=== PATIENT | male | born 1950 | race Caucasian/White ===

== ENCOUNTER 2018-10-06 10:04 | Outpatient (CLI) | payer MEDICARE ==
--- NOTE | 2018-10-06 11:40 | RAD ---
KUB: 10/06/2018 PROVIDED CLINICAL HISTORY: Abdominal pain. FINDINGS: The abdominal bowel gas pattern is nonspecific. No radiographically apparent urinary tract calculi. The supine nature of the examination is not sensitive for detection of pneumoperitoneum. Degenerati ve changes are seen involving the thoracic spine. IMPRESSION: No radiographically apparent urinary tract calculi. POS: SANTO
== END 2018-10-06 10:05 | disposition home or self-care (01) ==
LOC: RAD-FRANK 10:04
PROVIDERS: ATTEND Nurse Practitioner Family
DX: K57.92 Diverticulitis of intestine, part unspecified, without perforation or abscess without bleeding (principal)
CPT/HCPCS: 74018

== ENCOUNTER 2019-03-14 09:37 | Outpatient (CLI) | payer MEDICARE ==
--- NOTE | 2019-03-14 10:27 | RAD ---
LUMBAR SPINE THREE VIEWS: HISTORY: Low back pain. FINDINGS: There are degenerative changes in the lumbar spine. No fracture, subluxation, or bony destruction is seen. IMPRESSION: Lumbar spondylosis. POS: SERA
== END 2019-03-14 09:38 | disposition home or self-care (01) ==
LOC: RAD-FRANK 09:37
PROVIDERS: ATTEND Nurse Practitioner Family
DX: M47.26 Other spondylosis with radiculopathy, lumbar region (principal)
CPT/HCPCS: 72100

== ENCOUNTER 2020-09-30 10:53 | Outpatient (CLI) | payer MEDICARE, BC ==
--- NOTE | 2020-09-30 12:38 | RAD ---
PA AND LATERAL VIEWS CHEST: HISTORY: Pleuritic chest pain. COMPARISON: 04/20/2016. FINDINGS: The heart size is normal. The lungs are expanded without lobar consolidation, pneumothoraces, or ple ural effusions. There are degenerative changes in the spine. IMPRESSION: No acute process. POS: SERA
== END 2020-09-30 10:54 | disposition home or self-care (01) ==
LOC: RAD-FRANK 10:53
PROVIDERS: ATTEND Nurse Practitioner Family
DX: R07.81 Pleurodynia (principal)
CPT/HCPCS: 71046

== ENCOUNTER 2020-12-30 13:39 | Outpatient (CLI) | payer MEDICARE, OTHER | END 2020-12-30 13:40 | disposition home or self-care (01) | LOC: BICMRI 13:39 | PROVIDERS: ATTEND Neurological Surgery | DX: M48.062 Spinal stenosis, lumbar region with neurogenic claudication (principal); M54.6 Pain in thoracic spine | CPT/HCPCS: 72146; 72148 ==

== ENCOUNTER 2021-01-09 08:53 | Outpatient (CLI) | payer MEDICARE, OTHER ==
[2021-01-09 11:15] LABS: Hemoglobin 16.9 g/dL (13.5-17.5); Mean Corpuscular HGB CONC 32.9 g/dL (32.0-36.0); Mean Corpuscular Hemoglobin 29.9 pg (27.0-33.0); Mean Corpuscular Volume 90.8 fl (81.2-95.1); Mean Platelet Volume 10.9 fl (7.4-10.4); Platelet Count 225 10x3/uL (150-450); RBC Distribution Width 13.7 % (11.5-14.5); Red Blood Cell (RBC) Count 5.66 10x6/uL (4.32-5.72); White Blood Cell (WBC) Count 9.1 10x3/uL (3.5-10.5)
[2021-01-09 11:36] LABS: Anion Gap 14 mmol/L (10-20); BUN (Urea Nitrogen) 14 mg/dL (8.4-25.7); Calc. Creatinine Clearance 0 mL/min (70-130); Calcium 9.5 mg/dL (7.8-10.44); Carbon Dioxide 27 mmol/L (23-31); Chloride 103 mmol/L (98-107); Glucose 101 mg/dL (80-115); Potassium 4.2 mmol/L (3.5-5.1); Sodium 140 mmol/L (136-145)
[2021-01-09 20:55] LABS: SARS-CoV-2 PCR by NAA Not Detected (NotDetected)
== END 2021-01-09 08:54 | disposition home or self-care (01) ==
LOC: LABBT 08:53
PROVIDERS: ATTEND Neurological Surgery
DX: Z01.818 Encounter for other preprocedural examination (principal); Z20.822 Contact with and (suspected) exposure to COVID-19; M54.16 Radiculopathy, lumbar region
CPT/HCPCS: 80048; 85027; 93005; U0003; U0005; 87635; 93010

== ENCOUNTER 2021-01-14 07:17 | Observation (INO) | payer MEDICARE, OTHER ==
[2021-01-14] MEDS ORDERED: Phenylephrine 10 MG/ML VIAL ONE (09:13)
[2021-01-14] MEDS ORDERED: Fentanyl 100 MCG/2 ML VIAL ONE ×4 (09:20→15:09)
[2021-01-14] MEDS ORDERED: PHENYLEPHRINE-NS 100 MCG/ML 10 ML SYRINGE ONE (09:35)
[2021-01-14] MEDS ORDERED: Ondansetron PF 4 MG/2 ML Vial ONE (09:35)
[2021-01-14] MEDS ORDERED: PROPOFOL 200 MG/20 ML VIAL ONE (09:35)
[2021-01-14] MEDS ORDERED: Dexamethasone 20 MG/5 ML VIAL ONE (09:35)
[2021-01-14] MEDS ORDERED: Rocuronium Bromide 10 MG/ML (10ML VIAL) ONE (09:35)
[2021-01-14] MEDS ORDERED: Ketorolac Tromethamine 30 MG/ML VIAL ONE (09:35)
[2021-01-14] MEDS ORDERED: Lidocaine 1% PF 5 ML VIAL ONE (09:35)
[2021-01-14] MEDS ORDERED: ePHEDrine Sulfate 50 MG/10 ML VIAL ONE (09:35)
[2021-01-14] MEDS ORDERED: HYDROmorphone 2 MG/ML VIAL SLOW IVP PRN (10:07)
[2021-01-14] MEDS ORDERED: Meperidine HCl/PF 25 MG/ML VIAL SLOW IVP PRN (10:07)
[2021-01-14] MEDS ORDERED: Ondansetron HCl/PF 4 MG/2 ML Vial IVP PRN (10:07)
[2021-01-14] MEDS ORDERED: Promethazine HCl 25 MG/ML VIAL SLOW IVP PRN (10:07)
[2021-01-14] MEDS ORDERED: HYDROmorphone 2 MG/ML VIAL ONE (10:09)
[2021-01-14] MEDS ORDERED: SUGAMMADEX SODIUM 200 MG/2 ML VIAL ONE (10:51)
[2021-01-14] MEDS ORDERED: Promethazine HCl 25 MG/ML VIAL ONE (12:44)
[2021-01-14] MEDS ORDERED: Gabapentin 300 MG CAP ONE (15:16)
[2021-01-14] MEDS ORDERED: tiZANidine HCl 4 MG TAB ONE (17:11)
[2021-01-14 18:24] VITALS: BMI 36.6
[2021-01-14] MEDS: Gabapentin 300 MG CAP PO SCH ×2 (19:33→21:46)
[2021-01-14] MEDS ORDERED: Promethazine 25 MG TAB PO PRN (20:00)
[2021-01-14] MEDS ORDERED: diphenhydrAMINE 50 MG/ML VIAL IVP PRN (20:00)
[2021-01-14] MEDS ORDERED: Promethazine HCl 25 MG/ML VIAL IM PRN (20:00)
[2021-01-14] MEDS ORDERED: Promethazine HCl 12.5 MG SUPP PR PRN (20:00)
[2021-01-14] MEDS ORDERED: Morphine 2 MG/ML VIAL SLOW IVP PRN (20:00)
[2021-01-14] MEDS ORDERED: Bisacodyl 10 MG SUPP PR PRN (20:00)
[2021-01-14] MEDS ORDERED: traMADol HCl 50 MG TAB PO PRN ×2 (20:00)
[2021-01-14] MEDS ORDERED: Morphine 4 MG/ML VIAL SLOW IVP PRN ×2 (20:00→20:15)
[2021-01-14] MEDS ORDERED: Acetaminophen/Codeine 30-300mg Tablet PO PRN (20:00)
[2021-01-14] MEDS ORDERED: Mag-Al 1200 mg/1200 mg/30 ML UDCUP PO PRN (20:00)
[2021-01-14] MEDS ORDERED: Milk Of Magnesia 30 ML UDCUP PO PRN (20:00)
[2021-01-14] MEDS ORDERED: diphenhydrAMINE 25 MG CAP PO PRN (20:00)
[2021-01-14] MEDS ORDERED: Ondansetron PF 4 MG/2 ML Vial IM PRN (20:11)
[2021-01-14] MEDS: Sodium Chloride 0.9% 1,000 ML IV SCH (20:28)
[2021-01-14] MEDS: Acetaminophen/Codeine 30-300mg Tablet PO PRN ×2 (20:36→23:39)
[2021-01-14] MEDS ORDERED: Dexamethasone 10 MG in Sodium Chloride 0.9% 50 ML IVPB SCH (22:00)
[2021-01-14] MEDS: CEFAZOLIN 2 GM in Premix Bag 1 BAG IVPB SCH (23:00)
[2021-01-15] MEDS: tiZANidine HCl 4 MG TAB PO PRN ×2 (03:41→21:11)
[2021-01-15] MEDS: Acetaminophen/Codeine 30-300mg Tablet PO PRN (04:25)
[2021-01-15] MEDS: CEFAZOLIN 2 GM in Premix Bag 1 BAG IVPB SCH ×3 (06:21→21:12)
[2021-01-15] MEDS: Tamsulosin HCl 0.4 MG CAP PO SCH (08:22)
[2021-01-15] MEDS: Gabapentin 300 MG CAP PO SCH ×3 (08:22→21:11)
[2021-01-15] MEDS: Lisinopril/Hydrochlorothiazide 20 mg/12.5 mg Tablet PO SCH (08:22)
[2021-01-15] MEDS: Ezetimibe 10 MG TAB PO SCH (08:23)
[2021-01-15] MEDS: Sodium Chloride 0.9% 1,000 ML IV SCH ×2 (08:27→21:13)
[2021-01-15] MEDS: Dexamethasone 4 mg/ml Vial SLOW IVP SCH ×3 (10:42→21:11)
[2021-01-16] MEDS: Dexamethasone 4 mg/ml Vial SLOW IVP SCH ×4 (02:42→15:28)
[2021-01-16] MEDS: CEFAZOLIN 2 GM in Premix Bag 1 BAG IVPB SCH ×2 (05:53→15:28)
[2021-01-16] MEDS: Ezetimibe 10 MG TAB PO SCH (08:23)
[2021-01-16] MEDS: Gabapentin 300 MG CAP PO SCH ×2 (08:23→15:32)
[2021-01-16] MEDS: Acetaminophen/Codeine 30-300mg Tablet PO PRN (08:24)
[2021-01-16] MEDS: Tamsulosin HCl 0.4 MG CAP PO SCH (08:24)
[2021-01-16] MEDS: Lisinopril/Hydrochlorothiazide 20 mg/12.5 mg Tablet PO SCH (08:24)
[2021-01-16 11:32] VITALS: BP 128/75; TEMP 98.1
[2021-01-16] MEDS: Sodium Chloride 0.9% 1,000 ML IV SCH (12:23)
== END 2021-01-16 16:35 | disposition home or self-care (01) ==
LOC: SDC 07:17 → T4-B 11:38
PROVIDERS: ADMIT Neurological Surgery; ATTEND Neurological Surgery
PROC: 0SG0071 Fusion of Lumbar Vertebral Joint with Autologous Tissue Substitute, Posterior Approach, Posterior Column, Open Approach (ICD-10-PCS; principal; 2021-01-14)
PROC: 01NB0ZZ Release Lumbar Nerve, Open Approach (ICD-10-PCS; 2021-01-14)
DX: M43.16 Spondylolisthesis, lumbar region (principal); M54.16 Radiculopathy, lumbar region; M48.062 Spinal stenosis, lumbar region with neurogenic claudication; R53.1 Weakness; M21.372 Foot drop, left foot; M47.814 Spondylosis without myelopathy or radiculopathy, thoracic region; Z79.899 Other long term (current) drug therapy
CPT/HCPCS: 20930; 20936; 22612; 22840; 72131; 76000; 96374; 96375; 96376 ×2; 97110 ×2; 97116 ×2; 97139 ×2; C1713 ×2; C1768; G0378 ×3; J0690; J1100; J1170; J1885; J2370; J2405; J2550; J2704; J3010; J3370; J3490

== ENCOUNTER 2021-01-23 09:18 | Outpatient (CLI) | payer MEDICARE, OTHER | END 2021-01-23 09:19 | disposition home or self-care (01) | LOC: TBSIIMAG 09:18 | PROVIDERS: ATTEND Physician Assistant | DX: M47.26 Other spondylosis with radiculopathy, lumbar region (principal); Z98.890 Other specified postprocedural states | CPT/HCPCS: 72100 ==

== ENCOUNTER 2021-02-11 09:31 | Outpatient (CLI) | payer MEDICARE, OTHER ==
[2021-02-11 12:58] LABS: Anion Gap 16 mmol/L (10-20); BUN (Urea Nitrogen) 14 mg/dL (8.4-25.7); Calc. Creatinine Clearance 0 mL/min (70-130); Calcium 9.4 mg/dL (7.8-10.44); Carbon Dioxide 26 mmol/L (23-31); Chloride 102 mmol/L (98-107); Glucose 153 mg/dL (80-115); Potassium 4.3 mmol/L (3.5-5.1); Sodium 140 mmol/L (136-145)
[2021-02-11 13:02] LABS: Hemoglobin 15.1 g/dL (13.5-17.5); Mean Corpuscular HGB CONC 32.7 g/dL (32.0-36.0); Mean Corpuscular Hemoglobin 30.1 pg (27.0-33.0); Mean Corpuscular Volume 92.2 fl (81.2-95.1); Mean Platelet Volume 10.5 fl (7.4-10.4); Platelet Count 258 10x3/uL (150-450); RBC Distribution Width 13.2 % (11.5-14.5); Red Blood Cell (RBC) Count 5.01 10x6/uL (4.32-5.72); White Blood Cell (WBC) Count 6.1 10x3/uL (3.5-10.5)
[2021-02-12 06:30] LABS: SARS-CoV-2 PCR by NAA Not Detected (NotDetected)
== END 2021-02-11 09:32 | disposition home or self-care (01) ==
LOC: LABBT 09:31
PROVIDERS: ATTEND Neurological Surgery
DX: Z01.818 Encounter for other preprocedural examination (principal); M43.16 Spondylolisthesis, lumbar region; Z20.822 Contact with and (suspected) exposure to COVID-19
CPT/HCPCS: 80048; 85027; 93005; U0003; U0005; 93010

== ENCOUNTER 2021-02-16 08:07 | Day surgery (SDC) | payer MEDICARE, OTHER ==
[2021-02-16] MEDS ORDERED: Fentanyl 100 MCG/2 ML VIAL ONE ×3 (12:25→15:17)
[2021-02-16] MEDS ORDERED: Ondansetron PF 4 MG/2 ML Vial ONE (13:29)
[2021-02-16] MEDS ORDERED: Rocuronium Bromide 10 MG/ML (10ML VIAL) ONE (13:29)
[2021-02-16] MEDS ORDERED: Lidocaine 1% PF 5 ML VIAL ONE (13:29)
[2021-02-16] MEDS ORDERED: PROPOFOL 200 MG/20 ML VIAL ONE (13:29)
[2021-02-16] MEDS ORDERED: Dexamethasone 20 MG/5 ML VIAL ONE (13:29)
[2021-02-16] MEDS ORDERED: SUGAMMADEX SODIUM 200 MG/2 ML VIAL ONE (14:28)
[2021-02-16] MEDS ORDERED: Tamsulosin HCl 0.4 MG CAP ONE (15:41)
== END 2021-02-16 18:05 | disposition home or self-care (01) ==
LOC: SDC 08:07
PROVIDERS: ATTEND Neurological Surgery
PROC: 0SG0071 Fusion of Lumbar Vertebral Joint with Autologous Tissue Substitute, Posterior Approach, Posterior Column, Open Approach (ICD-10-PCS; principal; 2021-02-16)
DX: M43.16 Spondylolisthesis, lumbar region (principal); M54.16 Radiculopathy, lumbar region; Z79.899 Other long term (current) drug therapy
CPT/HCPCS: 76000; C1713; J0690; J1100; J2405; J2704; J3010; J3370

== ENCOUNTER 2021-02-26 09:49 | Outpatient (CLI) | payer MEDICARE, OTHER | END 2021-02-26 09:50 | disposition home or self-care (01) | LOC: TBSIIMAG 09:49 | PROVIDERS: ATTEND Physician Assistant | DX: M43.16 Spondylolisthesis, lumbar region (principal); Z98.890 Other specified postprocedural states | CPT/HCPCS: 72100 ==

== ENCOUNTER 2022-09-22 08:05 | Outpatient (CLI) | payer MEDICARE, OTHER | END 2022-09-22 08:06 | disposition home or self-care (01) | LOC: RAD-FRANK 08:05 | PROVIDERS: ATTEND Nurse Practitioner Family | DX: R05.9 Cough, unspecified (principal); J98.4 Other disorders of lung | CPT/HCPCS: 71046 ==

== ENCOUNTER 2023-07-12 07:40 | Outpatient (CLI) | payer MEDICARE, OTHER | END 2023-07-12 07:41 | disposition home or self-care (01) | LOC: MRI 07:40 | PROVIDERS: ATTEND Radiology Radiation Oncology | DX: C71.8 Malignant neoplasm of overlapping sites of brain (principal) | CPT/HCPCS: 70553 ==

== ENCOUNTER 2023-09-29 10:26 | Outpatient (CLI) | payer MEDICARE, OTHER ==
[2023-09-29] MEDS ORDERED: Magnevist 469MG/ML 20 ML VIAL ONE (14:50)
== END 2023-09-29 10:27 | disposition home or self-care (01) ==
LOC: MRI 10:26
PROVIDERS: ATTEND Radiology Radiation Oncology
DX: C71.9 Malignant neoplasm of brain, unspecified (principal); G93.9 Disorder of brain, unspecified
CPT/HCPCS: 70553; A9579

== ENCOUNTER 2023-10-11 05:03 | Emergency (ER) | payer MEDICARE, OTHER ==
[2023-10-11 06:57] LABS: Bacteria/HPF None Seen HPF (None Seen); Bilirubin Negative (Negative); Blood, Urine 2+ (Negative); CAUTI Indications for Culture Alt mental st,lethar; Calcium Oxalate Crystals 1+ HPF (None Seen); Clarity Clear (Clear); Glucose, Urine (Dipstick) Normal (Negative); Ketone, Urine Negative (Negative); Leukocyte Negative Leu/uL (Negative); Nitrite Negative (Negative); Protein, Urine (Dipstick) 20 mg/dL (Neg-Trace); RBC/HPF Greater than 50 HPF (0-3); Specific Gravity, Urine 1.027 (1.002-1.036); Squamous Epithelial 0-3 HPF (0-3); Urobilinogen Normal mg/dL (Less than 2); WBC/HPF 0-3 HPF (0-3)
[2023-10-11 07:04] LABS: #Monocytes 0.4 thou/uL (0.11-0.59); #Neutrophils 6.1 thou/uL (1.40-6.50); %Basophils 0.3 % (0.0-1.0); %Eosinophils 0.3 % (0.0-10.0); %Lymphocytes 5.7 % (21.0-51.0); %Monocytes 5.4 % (0.0-10.0); %Neutrophils 87.2 % (42.0-75.0); Hematocrit 52.4 % (42.0-52.0); Hemoglobin 17.7 g/dL (14.0-18.0); Mean Corpuscular HGB CONC 33.8 g/dL (32.0-36.0); Mean Corpuscular Hemoglobin 30.8 pg (27.0-31.0); Mean Corpuscular Volume 91.3 fl (78.0-98.0); Mean Platelet Volume 9.2 fL (7.4-10.4); Platelet Count 124 10x3/uL (130-400); RBC Distribution Width 15.2 % (11.5-14.5); Red Blood Cell (RBC) Count 5.74 mill/uL (4.70-6.10)
[2023-10-11 07:07] LABS: Urine Culture Reflex No No
[2023-10-11 07:11] LABS: SARS-CoV-2 NAA Rapid Test Not Detected (NotDetected)
[2023-10-11 07:20] LABS: INR-International Normal Ratio 1.2; PTT 29.9 sec (22.9-36.1); Prothrombin Time 14.8 sec (12.0-14.7)
[2023-10-11 07:30] LABS: ALT (SGPT) 128 U/L (8-55); AST (SGOT) 39 U/L (5-34); Albumin 3.4 g/dL (3.4-4.8); Alkaline Phosphatase 98 U/L (40-110); Anion Gap 13 mmol/L (10-20); BUN (Urea Nitrogen) 14 mg/dL (8.4-25.7); Bilirubin, Total 1.1 mg/dL (0.2-1.2); Calc. Creatinine Clearance 0 mL/min (70-130); Calcium 8.8 mg/dL (7.8-10.44); Carbon Dioxide 25 mmol/L (23-31); Chloride 108 mmol/L (98-107); Estimated GFR 96; Globulin 2.9 g/dL (2.4-3.5); Glucose 166 mg/dL (83-110); Lipase 30 U/L (8-78); Magnesium 1.8 mg/dL (1.6-2.6); Potassium 3.4 mmol/L (3.5-5.1); Protein, Total 6.3 g/dL (5.8-8.1); Sodium 143 mmol/L (136-145)
[2023-10-11 08:01] LABS: CellaVision Operator ID LAB.KW3; Platelet Adequacy Comment Platelets Decreased; RBC Morphology Within Normal Limits
[2023-10-11] MEDS ORDERED: Iopamidol-370 76% 500 ML MDV (1 ML CHARGE) ONE (10:25)
== END 2023-10-11 10:09 | disposition home or self-care (01) ==
LOC: ERS 05:03
DX: R41.82 Altered mental status, unspecified (principal); R09.02 Hypoxemia; I48.91 Unspecified atrial fibrillation; Z79.02 Long term (current) use of antithrombotics/antiplatelets
CPT/HCPCS: 0240U; 51701; 70470; 71045; 71275; 80053; 81001; 82962; 83605; 83690; 83735; 83880; 84484; 85025; 85610; 85730; 87040; 93005; 99285; 36415; 36416; Q9967

== ENCOUNTER 2023-10-20 14:23 | Inpatient (IN) | payer MEDICARE, OTHER ==
[~2023-10-20 14:23] MED LIST: Iopamidol-370 76% 500 ML MDV (1 ML CHARGE) ONE
[2023-10-20 16:04] LABS: #Monocytes 0.2 thou/uL (0.11-0.59); #Neutrophils 7.9 thou/uL (1.40-6.50); %Basophils 0.2 % (0.0-1.0); %Monocytes 2.5 % (0.0-10.0); %Neutrophils 90.9 % (42.0-75.0); Hematocrit 47.4 % (42.0-52.0); Hemoglobin 16.3 g/dL (14.0-18.0); Mean Corpuscular HGB CONC 34.4 g/dL (32.0-36.0); Mean Corpuscular Hemoglobin 30.8 pg (27.0-31.0); Mean Corpuscular Volume 89.6 fl (78.0-98.0); Mean Platelet Volume 9.6 fL (7.4-10.4); Platelet Count 180 10x3/uL (130-400); RBC Distribution Width 15.8 % (11.5-14.5); Red Blood Cell (RBC) Count 5.29 mill/uL (4.70-6.10); White Blood Cell (WBC) Count 8.7 10x3/uL (4.8-10.8)
[2023-10-20 16:28] LABS: ALT (SGPT) 70 U/L (8-55); AST (SGOT) 27 U/L (5-34); Albumin 3.6 g/dL (3.4-4.8); Alkaline Phosphatase 82 U/L (40-110); Anion Gap 18 mmol/L (10-20); BUN (Urea Nitrogen) 24 mg/dL (8.4-25.7); Bilirubin, Total 1.2 mg/dL (0.2-1.2); Calc. Creatinine Clearance 0 mL/min (70-130); Calcium 9.4 mg/dL (7.8-10.44); Carbon Dioxide 21 mmol/L (23-31); Chloride 104 mmol/L (98-107); Estimated GFR 76; Globulin 3.1 g/dL (2.4-3.5); Glucose 216 mg/dL (83-110); Potassium 3.8 mmol/L (3.5-5.1); Protein, Total 6.7 g/dL (5.8-8.1); Sodium 139 mmol/L (136-145)
[2023-10-20 16:32] LABS: Troponin I Less than 0.010 ng/mL (< 0.028)
[2023-10-20] MEDS ORDERED: Ondansetron ODT 4 MG TAB PO PRN (17:13)
[2023-10-20] MEDS ORDERED: Ondansetron PF 4 MG/2 ML Vial IVP PRN (17:13)
[2023-10-20] MEDS ORDERED: Sodium Chloride 0.9% 100 ML ONE (17:52)
[2023-10-20] MEDS ORDERED: cefTRIAXone (ROCEPHIN) 1 GM VIAL ONE (17:52)
[2023-10-20] MEDS ORDERED: Azithromycin 500 MG VIAL ONE (19:04)
[2023-10-20 19:29] LABS: Lactic Acid 2.9 mmol/L (0.5-2.2)
[2023-10-20] MEDS: Azithromycin 500 MG in Sodium Chloride 0.9% 250 ML 250 ML IVPB SCH (21:13)
[2023-10-20] MEDS: cefTRIAXone\\ROCEPHIN 1 GM in Sodium Chloride 0.9% 100 ML IVPB SCH (21:14)
[2023-10-20] MEDS: Lacosamide 50 mg Tablet PO SCH (22:25)
[2023-10-20 22:51] LABS: Bacteria/HPF None Seen HPF (None Seen); Bilirubin Negative (Negative); Blood, Urine Trace (Negative); CAUTI Indications for Culture Alt mental st,lethar; Clarity Clear (Clear); Glucose, Urine (Dipstick) Normal (Negative); Ketone, Urine Negative (Negative); Leukocyte 500 Leu/uL (Negative); Nitrite Negative (Negative); Protein, Urine (Dipstick) Negative (Neg-Trace); RBC/HPF 0-3 HPF (0-3); Specific Gravity, Urine 1.031 (1.002-1.036); Squamous Epithelial 0-3 HPF (0-3); Urobilinogen Normal mg/dL (Less than 2)
[2023-10-20 22:53] LABS: Urine Culture Reflex No No
[2023-10-21] MEDS: Atorvastatin Calcium 40 MG TAB PO SCH (01:10)
[2023-10-21] MEDS: Dexamethasone 4 MG TAB PO SCH (01:11)
[2023-10-21] MEDS: Sodium Chloride 0.9% 1,000 ML IV SCH (01:11)
[2023-10-21] MEDS: Apixaban 5 MG TAB PO SCH (01:11)
[2023-10-21] MEDS: Memantine 10 MG TAB PO SCH (01:11)
[2023-10-21] MEDS: levETIRAcetam 500 MG TAB PO SCH (01:11)
[2023-10-21 05:55] LABS: #Monocytes 0.6 thou/uL (0.11-0.59); #Neutrophils 9.2 thou/uL (1.40-6.50); %Basophils 0.1 % (0.0-1.0); %Eosinophils 0.1 % (0.0-10.0); %Lymphocytes 3.2 % (21.0-51.0); %Monocytes 5.4 % (0.0-10.0); %Neutrophils 90.1 % (42.0-75.0); Hematocrit 43.2 % (42.0-52.0); Hemoglobin 14.7 g/dL (14.0-18.0); Mean Corpuscular Volume 91.1 fl (78.0-98.0); Mean Platelet Volume 9.4 fL (7.4-10.4); Platelet Count 178 10x3/uL (130-400); RBC Distribution Width 15.8 % (11.5-14.5); Red Blood Cell (RBC) Count 4.74 mill/uL (4.70-6.10); White Blood Cell (WBC) Count 10.2 10x3/uL (4.8-10.8)
[2023-10-21 06:32] LABS: Anion Gap 13 mmol/L (10-20); BUN (Urea Nitrogen) 20 mg/dL (8.4-25.7); Calc. Creatinine Clearance 0 mL/min (70-130); Calcium 8.7 mg/dL (7.8-10.44); Carbon Dioxide 25 mmol/L (23-31); Chloride 108 mmol/L (98-107); Estimated GFR 96; Glucose 143 mg/dL (83-110); Potassium 3.7 mmol/L (3.5-5.1); Sodium 142 mmol/L (136-145)
[2023-10-21 06:33] VITALS: BMI 35.2
[2023-10-21 06:47] LABS: Influenza A by NAA Not Detected (NotDetected); Influenza B by NAA Not Detected (NotDetected); SARS-CoV-2 NAA Rapid Test Not Detected (NotDetected)
[2023-10-21] MEDS: Tamsulosin HCl 0.4 MG CAP PO SCH (09:57)
[2023-10-21] MEDS: Lisinopril 20 MG TAB PO SCH (09:58)
[2023-10-21] MEDS: Hydrochlorothiazide 25 MG TAB PO SCH (09:58)
[2023-10-21] MEDS: Albuterol 2.5 MG (3 mL) NEB NEB SCH (14:08)
[2023-10-21] MEDS: guaiFENesin 200 MG TAB PO PRN (14:51)
[2023-10-21] MEDS: Senokot S 8.6-50 MG TAB PO SCH ×2 (14:51→20:36)
[2023-10-22 04:09] LABS: #Monocytes 0.5 thou/uL (0.11-0.59); #Neutrophils 7.2 thou/uL (1.40-6.50); %Basophils 0.1 % (0.0-1.0); %Lymphocytes 5.2 % (21.0-51.0); %Monocytes 6.1 % (0.0-10.0); %Neutrophils 87.9 % (42.0-75.0); Hematocrit 42.3 % (42.0-52.0); Hemoglobin 14.2 g/dL (14.0-18.0); Mean Corpuscular HGB CONC 33.6 g/dL (32.0-36.0); Mean Corpuscular Hemoglobin 30.3 pg (27.0-31.0); Mean Corpuscular Volume 90.2 fl (78.0-98.0); Mean Platelet Volume 9.4 fL (7.4-10.4); Platelet Count 167 10x3/uL (130-400); RBC Distribution Width 15.7 % (11.5-14.5); Red Blood Cell (RBC) Count 4.69 mill/uL (4.70-6.10); White Blood Cell (WBC) Count 8.2 10x3/uL (4.8-10.8)
[2023-10-22 05:02] LABS: Anion Gap 11 mmol/L (10-20); BUN (Urea Nitrogen) 16 mg/dL (8.4-25.7); Calc. Creatinine Clearance 142 mL/min (70-130); Calcium 8.5 mg/dL (7.8-10.44); Carbon Dioxide 27 mmol/L (23-31); Chloride 107 mmol/L (98-107); Estimated GFR 96; Glucose 143 mg/dL (83-110); Sodium 141 mmol/L (136-145)
[2023-10-22] MEDS: Ipratropium/Albuterol 3 ML NEB NEB SCH (19:16)
[2023-10-23 07:26] LABS: #Monocytes 0.6 thou/uL (0.11-0.59); #Neutrophils 7.8 thou/uL (1.40-6.50); %Basophils 0.2 % (0.0-1.0); %Lymphocytes 9.1 % (21.0-51.0); %Monocytes 6.7 % (0.0-10.0); %Neutrophils 83.3 % (42.0-75.0); Hematocrit 41.7 % (42.0-52.0); Mean Corpuscular HGB CONC 33.6 g/dL (32.0-36.0); Mean Corpuscular Hemoglobin 30.4 pg (27.0-31.0); Mean Corpuscular Volume 90.7 fl (78.0-98.0); Mean Platelet Volume 9.5 fL (7.4-10.4); Platelet Count 162 10x3/uL (130-400); RBC Distribution Width 15.5 % (11.5-14.5); White Blood Cell (WBC) Count 9.4 10x3/uL (4.8-10.8)
[2023-10-23 08:03] LABS: Anion Gap 11 mmol/L (10-20); BUN (Urea Nitrogen) 14 mg/dL (8.4-25.7); Calc. Creatinine Clearance 139 mL/min (70-130); Calcium 8.9 mg/dL (7.8-10.44); Carbon Dioxide 27 mmol/L (23-31); Chloride 106 mmol/L (98-107); Estimated GFR 96; Glucose 139 mg/dL (83-110); Potassium 3.7 mmol/L (3.5-5.1); Sodium 140 mmol/L (136-145)
[2023-10-23] MEDS: cefTRIAXone\\ROCEPHIN 1 GM in Sodium Chloride 0.9% 100 ML IVPB SCH (13:51)
[2023-10-23 14:23] VITALS: BP 120/75; TEMP 98.1
== END 2023-10-23 14:50 | disposition home or self-care (01) | DRG 193 ==
LOC: ERS 14:23 → ERHOLD 17:03 → 2SE 22:15
PROVIDERS: ADMIT Internal Medicine; ATTEND Family Medicine
DX: J18.9 Pneumonia, unspecified organism (principal); J96.21 Acute and chronic respiratory failure with hypoxia; C79.31 Secondary malignant neoplasm of brain; I48.91 Unspecified atrial fibrillation; I10 Essential (primary) hypertension; E78.5 Hyperlipidemia, unspecified; N40.0 Benign prostatic hyperplasia without lower urinary tract symptoms; G47.33 Obstructive sleep apnea (adult) (pediatric); E66.9 Obesity, unspecified; G40.909 Epilepsy, unspecified, not intractable, without status epilepticus; Z99.81 Dependence on supplemental oxygen; Z86.73 Personal history of transient ischemic attack (TIA), and cerebral infarction without residual deficits; Z79.899 Other long term (current) drug therapy; Z68.36 Body mass index [BMI] 36.0-36.9, adult; Z11.52 Encounter for screening for COVID-19
CPT/HCPCS: 36415; 36416; 71045; 71275; 80048; 80053; 81001; 83605; 83880; 84145; 84484; 85025; 87040; 93005; 94640; 96365; 96375; J0456; J0696; J3490; J7050; J7611; J7620; J8540; Q9967